=== PATIENT | female | born 1985 | race Caucasian/White ===

== ENCOUNTER 2017-10-04 13:43 | Observation (INO) | payer MEDICAID, OTHER ==
[~2017-10-04] VITALS: Ht 172.7 cm; Wt 129.7 kg
--- NOTE | 2017-10-04 13:55 | NUR ---
PATIENT 26 WKS. GESTATION WITH ABD. PAIN,LOW BACK PAIN,WEAK/DIZZY. BP 116/61,POX 99%,TEMP. 97.7,HR 73 R 19. BS 85. CALLED AND TAKEN TO L & D VIA W/C. SPOKE TO ROSA IN L&D. OFFERED ORANGE JUICE
[2017-10-04 15:05] VITALS: BP 111/58
== END 2017-10-04 18:05 | disposition home or self-care (01) ==
LOC: MED 13:43 → INTOOBSV 14:39 → MLD 14:39
PROVIDERS: ADMIT Obstetrics & Gynecology; ATTEND Obstetrics & Gynecology
DX: O99.89 Other specified diseases and conditions complicating pregnancy, childbirth and the puerperium (principal); M54.5 Low back pain; Z3A.24 24 weeks gestation of pregnancy
CPT/HCPCS: 76805; 81000; 82948; 99281; G0378; Q0092

== ENCOUNTER 2019-09-09 21:41 | Emergency (ER) | payer MEDICAID, OTHER ==
[~2019-09-09] VITALS: Ht 175.3 cm; Wt 130.2 kg
[2019-09-09 22:01] VITALS: BP 149/90
[2019-09-09] MEDS ORDERED: LORazepam 2 MG/ML VIAL IM ONE (22:25)
[2019-09-09 22:47] VITALS: BP 149/90
== END 2019-09-09 22:47 | disposition home or self-care (01) ==
LOC: MED 21:41
DX: F41.9 Anxiety disorder, unspecified (principal); Z88.6 Allergy status to analgesic agent
CPT/HCPCS: 96372; 99283; J2060

== ENCOUNTER 2020-07-30 17:22 | Emergency (ER) | payer MEDICAID ==
[~2020-07-30] VITALS: Ht 175.3 cm; Wt 138.3 kg
[2020-07-30 17:35] VITALS: BP 156/87
[2020-07-30] MEDS ORDERED: KETOROLAC 30 MG/ML VIAL IM ONE (18:15)
[2020-07-30] MEDS ORDERED: IBUP-2213 PO (19:24)
== END 2020-07-30 19:34 | disposition home or self-care (01) ==
LOC: MED 17:22
DX: S93.401A Sprain of unspecified ligament of right ankle, initial encounter (principal); I10 Essential (primary) hypertension; Z88.5 Allergy status to narcotic agent; Z79.899 Other long term (current) drug therapy; W19.XXXA Unspecified fall, initial encounter; Y93.89 Activity, other specified; Y92.89 Other specified places as the place of occurrence of the external cause; Y99.8 Other external cause status
CPT/HCPCS: 29515; 73610; 73630; 96372; 99284; J1885

== ENCOUNTER 2022-06-24 19:28 | Observation (INO) | payer MEDICAID ==
[~2022-06-24] VITALS: Ht 175.3 cm; Wt 145.1 kg
[~2022-06-24 19:28] MED LIST: IBUP-2213 PO
[2022-06-24] MEDS ORDERED: PNV91TAB8 PO (20:04)
[2022-06-24 20:07] VITALS: BP 130/67
== END 2022-06-24 20:30 | disposition home or self-care (01) ==
LOC: MLD 19:28
PROVIDERS: ADMIT Obstetrics & Gynecology; ATTEND Obstetrics & Gynecology
DX: O62.9 Abnormality of forces of labor, unspecified (principal); Z3A.37 37 weeks gestation of pregnancy
CPT/HCPCS: G0378

== ENCOUNTER 2022-07-16 08:30 | Inpatient (IN) | payer MEDICAID ==
[~2022-07-16] VITALS: Ht 175.3 cm; Wt 147.4 kg
[~2022-07-16 08:30] MED LIST changes: +PNV91TAB8 PO
[2022-07-16] MEDS ORDERED: CARBOPROST 250 MCG/ML AMP IM PRN (09:10)
[2022-07-16] MEDS ORDERED: OXYTOCIN 20 UNITS in LACTATED RINGERS 1,000 ML IV SCH (09:10)
[2022-07-16] MEDS ORDERED: ONDANSETRON 4 MG/2 ML VIAL IVP PRN (09:10)
[2022-07-16] MEDS ORDERED: METHYLERGONOVINE 0.2 MG/ML AMP IM PRN (09:10)
[2022-07-16] MEDS: LACTATED RINGERS 1,000 ML IV SCH ×3 (09:53→19:34)
[2022-07-16 10:28] LABS: BASOPHILS % (AUTO) 0.4 % (0.0-2.0); EOSINOPHILS # (AUTO) 0.1 K/uL (0-0.4); EOSINOPHILS % (AUTO) 0.9 % (0.0-4.0); HEMATOCRIT 35.4 % (36-48); HEMOGLOBIN 11.9 g/dL (12.0-16.0); LYMPHOCYTES # (AUTO) 1.4 K/uL (2.5-16.5); LYMPHOCYTES % (AUTO) 17.4 % (20.5-51.1); MEAN CORPUSCULAR HEMOGLOBIN 28 pg (27-31); MEAN CORPUSCULAR HGB CONC 34 g/dL (33-37); MEAN CORPUSCULAR VOLUME 83.8 fL (80-94); MONOCYTES # (AUTO) 0.4 K/uL (0.8-1.0); MONOCYTES % (AUTO) 5.5 % (1.7-9.3); NEUTROPHILS # (AUTO) 6.2 K/uL (1.8-7.7); NEUTROPHILS % (AUTO) 75.8 % (42.2-75.2); PLATELET COUNT (AUTO) 178 K/uL (140-450); RED BLOOD CELL COUNT(AUTO) 4.23 MIL/uL (4.20-5.40); RED CELL DISTRIBUTION WIDTH 15.2 % (11.6-13.7); WHITE BLOOD COUNT (AUTO) 8.2 K/uL (4.8-10.8)
--- NOTE | 2022-07-16 10:32 | NUR ---
PATIENT HAS BEEN SCREENED AND CATEGORIZED LOW NUTRITION RISK. PATIENT WILL BE SEEN WITHIN 7 DAYS OF ADMISSION. 07/23/22 REVIEWED BY JEN [address]ONSO [address]
[2022-07-16 10:40] VITALS: BP 137/63
[2022-07-16 10:58] LABS: ALBUMIN 2.7 g/dL (3.4-5.0); ANION GAP 14.1 (8-16); CARBON DIOXIDE 26.2 mmol/L (21-32); CREATININE 0.6 mg/dL (0.6-1.3); POTASSIUM 4.3 mmol/L (3.5-5.1); PROTHROMBIN TIME 9.8 secs (10.8-13.4); TOTAL BILIRUBIN 0.4 mg/dL (0.0-1.0)
[2022-07-16] MEDS ORDERED: MISOPROSTOL 25 MCG TAB ONE (11:00)
[2022-07-16] MEDS: MISOPROSTOL 25 MCG TAB VG SCH ×3 (11:10→23:50)
[2022-07-16 11:18] LABS: APPEARANCE,URINE CLEAR (CLEAR); BILIRUBIN,URINE NEGATIVE (NEGATIVE); BLOOD, URINE NEGATIVE (NEGATIVE); COLOR,URINE YELLOW (YELLOW); LEUKOCYTE ESTERASE ,URINE TRACE (NEGATIVE); NITRITE, URINE NEGATIVE (NEGATIVE); UGLUCOSE NEGATIVE (NEGATIVE)
[2022-07-16] MEDS ORDERED: ROPIVACAINE 0.2%/NS PREMIX 200 ML EPI ONE (19:07)
[2022-07-17] MEDS: LACTATED RINGERS 1,000 ML IV SCH (03:34)
[2022-07-17] MEDS ORDERED: OXYTOCIN 20 UNITS/LR PREMIX 1,000 ML IV ONE (05:46)
[2022-07-17] MEDS ORDERED: METHYLERGONOVINE 0.2 MG TAB PO PRN (06:40)
[2022-07-17] MEDS ORDERED: METHYLERGONOVINE 0.2 MG/ML AMP IM PRN (06:40)
[2022-07-17] MEDS ORDERED: OXYTOCIN 10 UNITS/ML VIAL IM PRN (06:40)
[2022-07-17] MEDS ORDERED: BENZOCAINE/MENTHOL 20%-0.5% 60 GM CAN TP PRN (06:40)
[2022-07-17] MEDS ORDERED: TEMAZEPAM 15 MG CAP PO PRN (06:40)
[2022-07-17] MEDS ORDERED: IBUPROFEN 800 MG TAB PO PRN (06:40)
[2022-07-17] MEDS ORDERED: oxyCODONE/APAP 5/325 MG 1 TAB TAB PO PRN ×2 (06:40)
[2022-07-17] MEDS ORDERED: DOCUSATE SOD/SENNA 50/8.6 MG 1 TAB PO SCH (21:00)
[2022-07-18 05:37] LABS: HEMATOCRIT 35.9 % (36-48); HEMOGLOBIN 11.9 g/dL (12.0-16.0)
== END 2022-07-18 10:30 | disposition home or self-care (01) | DRG 560 ==
LOC: MLD 08:30 → OBSVTOIN 09:22 → MFCC 07-17 10:25
PROVIDERS: ADMIT Obstetrics & Gynecology; ATTEND Obstetrics & Gynecology
PROC: 10D07Z6 Extraction of Products of Conception, Vacuum, Via Natural or Artificial Opening (ICD-10-PCS; principal; 2022-07-17)
PROC: 3E0R3BZ Introduction of Anesthetic Agent into Spinal Canal, Percutaneous Approach (ICD-10-PCS; 2022-07-17)
PROC: 00HU33Z Insertion of Infusion Device into Spinal Canal, Percutaneous Approach (ICD-10-PCS; 2022-07-17)
DX: O48.0 Post-term pregnancy (principal); Z37.0 Single live birth; O36.8130 Decreased fetal movements, third trimester, not applicable or unspecified; Z3A.40 40 weeks gestation of pregnancy; Z20.822 Contact with and (suspected) exposure to COVID-19
CPT/HCPCS: 36415; 51702; 59200; 80053; 81003; 85018; 85025; 85610; 85730; 86592; 86886; 86900; 86901; 90715; J2590; J2795; J7120